=== PATIENT | female | born 1950 | race Caucasian/White ===

== ENCOUNTER → 2021-01-13 | Outpatient (CLI) | payer MEDICAID | LOC: COL.RAD 09:32 | DX: M50.122 Cervical disc disorder at C5-C6 level with radiculopathy (principal); M48.02 Spinal stenosis, cervical region; M25.78 Osteophyte, vertebrae; M47.26 Other spondylosis with radiculopathy, lumbar region; M47.27 Other spondylosis with radiculopathy, lumbosacral region; M48.061 Spinal stenosis, lumbar region without neurogenic claudication; M51.16 Intervertebral disc disorders with radiculopathy, lumbar region ==

== ENCOUNTER → 2021-02-04 | Outpatient (CLI) | payer MEDICAID | LOC: MHCPAIN 13:41 | DX: M47.812 Spondylosis without myelopathy or radiculopathy, cervical region (principal); M54.2 Cervicalgia; M47.816 Spondylosis without myelopathy or radiculopathy, lumbar region; M54.5 Low back pain | CPT/HCPCS: G0463 ==

== ENCOUNTER → 2021-03-16 | Outpatient (CLI) | payer MEDICAID | LOC: MHCPAIN 09:31 | DX: M47.812 Spondylosis without myelopathy or radiculopathy, cervical region (principal); M54.2 Cervicalgia; M54.12 Radiculopathy, cervical region; G89.29 Other chronic pain | CPT/HCPCS: G0463; J1100; Q9967 ==

== ENCOUNTER → 2021-04-28 | Outpatient (CLI) | payer MEDICAID | LOC: MHCPAIN 13:39 | DX: M47.812 Spondylosis without myelopathy or radiculopathy, cervical region (principal); M54.2 Cervicalgia; G89.29 Other chronic pain | CPT/HCPCS: G0463 ==

== ENCOUNTER → 2021-05-04 | Outpatient (CLI) | payer MEDICAID | LOC: MHCPAIN 10:52 | DX: M47.812 Spondylosis without myelopathy or radiculopathy, cervical region (principal); M54.2 Cervicalgia; M54.12 Radiculopathy, cervical region | CPT/HCPCS: J1100; Q9967 ==